=== PATIENT | male | born 1980 | race Caucasian/White ===

== ENCOUNTER 2018-10-20 20:14 | Emergency (ER) | payer BC ==
[~2018-10-20] VITALS: Ht 180.3 cm; Wt 117.9 kg
[~2018-10-20 20:14] MED LIST: BENADRYL ALLERG25 MG PO; FISH OIL + VIT1 EACH PO; SORIATANE25 MG PO; STELARA45 MG/0.1 INJ; THERA-M CAPLET1 EACH PO; ZOLOFT25 MG PO
[2018-10-20] MEDS ORDERED: COSENTYX P150 MG/11 IM (20:21)
[2018-10-20 21:11] VITALS: BP 140/88
== END 2018-10-20 21:11 | disposition home or self-care (01) ==
LOC: ER 20:14
DX: R20.2 Paresthesia of skin (principal); L40.50 Arthropathic psoriasis, unspecified

== ENCOUNTER → 2020-08-22 | Outpatient (CLI) | payer OTHER ==
[~2020-08-22] MED LIST changes: +COSENTYX P150 MG/11 IM
== END ==
LOC: SJCVCIMAG 07:37
PROVIDERS: ATTEND Internal Medicine
DX: R00.0 Tachycardia, unspecified (principal); I49.3 Ventricular premature depolarization; E78.5 Hyperlipidemia, unspecified; Z79.899 Other long term (current) drug therapy